=== PATIENT | female | born 1940 | race Caucasian/White ===

== ENCOUNTER 2016-07-16 15:45 | Inpatient (IN) ==
[2016-07-16] MEDS ORDERED: TYLENOL PO ONE (18:34)
[2016-07-16 19:27] LABS: BASO% 0.7 % (0.0-0.8); EOS# 0.04 X1000 (0.0-0.7); EOS% 0.3 % (0.0-10.0); HEMATOCRIT 28.5 % (37.0-47.0); HEMOGLOBIN 9.2 g/dL (12.0-16.0); IMM GRAN# 1.31 X1000 (0.0-0.04); IMM GRAN% 9.4 % (0.0-0.5); LYMPH# 1.05 X1000 (1.2-3.4); LYMPH% 7.6 % (20.5-51.1); MANUAL DIFF NEEDED? NO; MCH 31.1 PG (27-31); MCHC 32.3 g/dL (33-37); MCV 96.3 FL (81-99); MONO# 1.31 X1000 (0.11-0.59); MONO% 9.4 % (1.7-9.3); MPV 9.8 FL (7.4-10.4); NEUT% 72.6 % (42.2-75.2); PLT 316 X1000 (130-400); RBC 2.96 XMIL (4.2-5.4)
[2016-07-16] MEDS ORDERED: LEVAQUIN 750 MG/D5W 750 MG/150 ML IVPB IV ONE (19:31)
[2016-07-16] MEDS ORDERED: LR 1,000 ML IV PRN (19:32)
--- NOTE | 2016-07-16 19:37 | PROVIDER DOCUMENTATION ---
This chart was entered by Rena Saavedra Scribe, acting as scribe for Everette Barajas MD. HPI-General Adult - General Chief Complaint: UTI Symptoms Stated Complaint: UTI SX/FEVER Time Seen by Provider: 07/16/16 18:33 Source: family Allergies/Adverse Reactions: Patient Allergies Allergy/AdvReac Type Severity Reaction Status Date / Time No Known Allergies Allergy Verified 04/22/16 20:22 Home Medications: Home Medication List Medication Instructions Recorded Confirmed Last Taken Type Donepezil [Aricept] 10 mg PO DAILY #0 tablet 05/08/15 04/22/16 04/22/16 Rx Levothyroxine [Synthroid] 75 microgm PO DAILY #0 tablet 05/08/15 04/22/16 Rx Perservision 1 each PO DAILY 05/18/15 04/22/16 04/19/16 History Tramadol [Ultram] 50 mg PO Q4H PRN PRN #0 tablet 05/22/15 04/22/16 04/22/16 Rx Escitalopram Oxalate [Lexapro] 20 mg PO DAILY 05/27/15 04/22/16 04/22/16 History Oxaprozin [Daypro] 600 mg PO BID 04/22/16 04/22/16 04/22/16 History Iron Carbonyl/Ascorbic Acid 1 each PO DAILY #30 tablet 04/25/16 Unknown Rx [Icar-C] Levofloxacin [Levaquin] 500 mg PO DAILY #7 tablet 07/16/16 Unknown Rx - History of Present Illness -Gen Adult Nature of Presenting Problems: Family states that pt has spiked a fever and has not been as active as normal. Daughter states that she has been falling the last couple of days and was seen by Dr. Pritchard yesterday. They were told imaging of legs were normal and it was just worsening of her dementia. Daughter states that pt spiked a fever this morning and thinks that it could be a UTI. Severity: reports: mild Onset/Duration: reports: this morning Timing: reports: still present Associated Symptoms: reports: fever/chills Similar Symptoms Previously?: No Recently seen or treated by another doctor?: Yes Review of Systems - Adult - REVIEW OF SYSTEMS - ADULT ROS:: ROS per family Constitutional: reports: fever. denies: chills Eyes: reports: no symptoms reported Ears, Nose, Mouth & Throat: reports: no symptoms reported Cardiovascular: reports: no symptoms reported Respiratory: denies: cough, wheezing Gastrointestinal: denies: nausea, vomiting Genitourinary: reports: no symptoms reported Musculoskeletal: reports: no symptoms reported Integumentary: denies: skin sores/ulcer, skin thickening Neurological: reports: no symptoms reported Psychiatric: reports: no symptoms reported Endocrine: reports: no symptoms reported Hematologic/Lymphatic: reports: no symptoms reported Allergic/Immunologic: reports: no symptoms reported All Other Systems: Reviewed and Negative Past History - Adult - PAST MEDICAL HISTORY-ADULT Review of Records: reports: Nursing Assessment Review, Medications Reviewed Major Childhood Illnesses: reports: denies history Cardiovascular: reports: HTN, hyperlipidemia Respiratory: reports: denies history Gastrointestinal: reports: denies history Obstetrical/Gynecological: reports: denies history Genitourinary: reports: denies history Musculoskeletal: reports: chronic pain (back) Neurological: reports: Alzheimer's, dementia Psychiatric: reports: depression Endocrine/Immune: reports: thyroid disorder Other Conditions: reports: denies history - PRIOR SURGERIES/PROCEDURES Surgical/Procedure History: reports: cholecystectomy, other (eye) - IMMUNIZATION STATUS Childhood Immunizations: See Nurse Assessment Flu Vaccine: See Nurse Assessment - FAMILY HISTORY Family History: reviewed, not pertinent - SOCIAL HISTORY Smoking: non-smoker Substance Use: none/never Alcohol Use Frequency: never Physical Exam-General - PHYSICAL EXAM-ADULT Initial Vital Signs Reviewed: Yes - CONSTITUTIONAL General Appearance: alert - HEAD, EARS, NOSE, MOUTH & THROAT HENMT: other (poor dentention) - RESPIRATORY Respiratory: chest non-tender, lungs clear, normal breath sounds - CARDIOVASCULAR Cardiovascular: normal peripheral pulses, regular rate, rhythm, no edema - GASTROINTESTINAL (ABDOMEN) Abdominal Exam: tenderness (generalized but greater in suprapubic area) - SKIN Integumentary: other (flushed) - NEUROLOGIC Neurologic: other (reacts to babies crying and acts like people are there who are not) Progress - PLAN OF CARE/RESULTS Progress/Plan/Lab Results: Vital Signs - 8 hr 07/16/16 15:51 Temperature 99.6 F Pulse Rate 93 H Respiratory Rate 18 Blood Pressure 103/69 O2 Sat by Pulse Oximetry 98 Orders Category Date Time Status FLAT/UPRIGHT ABD/1 VIEW CHEST [RAD] Stat Exams 07/16/16 18:33 Taken CBC WITH DIFF [HEME] Stat Lab 07/16/16 18:33 Ordered COMPREHENSIVE METABOLIC PANEL [CHEM] Stat Lab 07/16/16 18:33 Ordered urinalysis [URINALYSIS PL W/POSS RFLX CULT] [URINALYSIS Lab 07/16/16 18:51 Ordered ] Stat Acetaminophen [Tylenol] Med 07/16/16 18:34 Discontinued 500 mg PO NOW ONE Result Diagrams: 07/16/16 19:20 - XRAY 1 Impression: Normal (normal chest, cardiomegally, severe kyphoscoliosis of the spine, large amount of stool but NSBGP, no obstruction: DR. Barajas(ER MD)) XRAY Interpretation: normal chest, severe kyphoscoliosis of the spine, NSBGP: DR. Barajas(ER MD) Departure - Departure Time of Disposition Decision: 19:37 DIAGNOSIS: Pyelonephritis, acute Disposition: HOME 01 Certified Medical Emergency: Emergent Condition: Fair Additional Freetext Instructions: DRINK PLENTY FLUIDS FOLLOW UP WITH DR. PRITCHARD IN COUPLE DAYS Prescriptions: Levofloxacin [Levaquin] 500 mg PO DAILY #7 tablet Referrals and Follow-Ups: Mane Pritchard MD [Primary Care Provider] - - Critical Care Note This patient required my direct & personal management of CC.: No This chart was documented by the indicated scribe, (Rena Saavedra Scribe) and accurately reflects the services I performed and decisions made by me, Everette Barajas MD, as attested by the provider's signature.
[2016-07-16 19:50] LABS: ALBUMIN 3.3 g/dL (3.5-5.0); POTASSIUM 4.6 mmol/L (3.5-5.1); TOTAL BILIRUBIN 0.2 mg/dL (0.20-1.00); TOTAL PROTEIN 6.7 g/dL (6.3-8.3)
[2016-07-16 19:50] LABS: BILIRUBIN URINE 2+ (NEGATIVE); BLOOD URINE 2+ (NEGATIVE); CLARITY SL. CLOUDY (CLEAR); COLOR YELLOW; GLUCOSE URINE NEGATIVE (NEGATIVE); LEUKOCYTES URINE 2+ (NEGATIVE); NITRITE URINE NEGATIVE (NEGATIVE); PROTEIN URINE 1+(30 mg/dL) mg/dL (NEGATIVE); UROBILINOGEN URINE 1+(1 mg/dL)
[2016-07-16 19:51] LABS: URINE RBC TNTC /HPF (<10); URINE WBC TNTC /HPF (<10)
[2016-07-16 19:52] LABS: URINE CAST NONE SEEN /LPF; URINE CRYSTAL NONE SEEN /HPF; URINE CULTURE PL NEEDED? YES; URINE EPITHELIAL CELLS >10 /HPF (<10); URINE SOURCE CLEAN CATCH
[2016-07-16] MEDS ORDERED: NS 1,000 ML IV ONE (20:36)
[2016-07-16] MEDS ORDERED: LEVAQUIN 500 MG/D5W 500 MG/100 ML IVPB IV SCH (20:45)
[2016-07-17] MEDS: TYLENOL PO PRN ×2 (05:44→16:01)
[2016-07-17 07:03] LABS: BASO% 0.4 % (0.0-0.8); EOS# 0.01 X1000 (0.0-0.7); EOS% 0.1 % (0.0-10.0); HEMOGLOBIN 7.7 g/dL (12.0-16.0); IMM GRAN# 1.38 X1000 (0.0-0.04); IMM GRAN% 11.1 % (0.0-0.5); LYMPH# 0.65 X1000 (1.2-3.4); LYMPH% 5.2 % (20.5-51.1); MCH 30.4 PG (27-31); MCHC 32.1 g/dL (33-37); MCV 94.9 FL (81-99); MONO# 0.98 X1000 (0.11-0.59); MONO% 7.9 % (1.7-9.3); NEUT% 75.3 % (42.2-75.2); PLT 289 X1000 (130-400); RBC 2.53 XMIL (4.2-5.4)
[2016-07-17 07:23] LABS: ALBUMIN 2.8 g/dL (3.5-5.0); CALCIUM 8.5 mg/dL (8.8-10.2); POTASSIUM 4.2 mmol/L (3.5-5.1); TOTAL BILIRUBIN 0.2 mg/dL (0.20-1.00); TOTAL PROTEIN 5.7 g/dL (6.3-8.3)
[2016-07-17 07:41] LABS: BANDS 2 % (0-1); LYMPHS 5 % (21-51); MANUAL DIFF NEEDED? YES; MONO 8 % (1-9)
--- NOTE | 2016-07-17 09:05 | Diag Imaging Result Document ---
PROCEDURE NAME: FLAT/UPRIGHT ABD/1 VIEW CHEST - 07/16/2016 FLAT AND UPRIGHT AND CHEST, THREE VIEWS: COMPARISON: The chest is compared to 04/22/2016. FINDINGS: The lungs are well expanded. There are no infiltrates. No free air beneath the diaphragm. Moderate scoliosis. There are surgical clips in the mid right abdomen consistent with a cholecystectomy. No bowel obstruction. No organomegaly. IMPRESSION: 1. No pneumonia. 2. No acute abdominal abnormality.
[2016-07-17] MEDS ORDERED: ULTRAM PO PRN (10:19)
[2016-07-17] MEDS ORDERED: DULCOLAX PR ONE (11:20)
[2016-07-17] MEDS: NS 1,000 ML IV PRN (12:48)
--- NOTE | 2016-07-17 13:51 | HISTORY AND PHYSICAL ---
PRIMARY CARE PHYSICIAN: Dr. Mane Pritchard. CHIEF COMPLAINT: Subjective fever, per the patient's daughter. Brought in for a possible urinary tract infection. HISTORY OF PRESENTING ILLNESS: This is a 75-year-old female who was brought in to [facility] ER by her family, who stated that she had spiked a fever and had not been acting normal. Stated that she has had a couple of falls the last couple of days. Was seen by her primary care physician yesterday, and he felt at that time that it was worsening of her dementia. The daughter states that the patient yesterday morning spiked a fever and felt that it could be a urinary tract infection, so she brought her in for evaluation and treatment. Workup showed a white blood cell count of 13.89, hemoglobin and hematocrit on arrival of 9.2 and 28.5. Sodium was 127 and chloride 91. BUN was 99 with a creatinine of 4.8. Urinalysis showed negative nitrites, but 2+ white blood cells and 2+ bacteria. It was noted that she was admitted to the hospital in April of this year with a GI bleed. She was admitted to the medical floor and we rechecked laboratories this a.m., on 07/17/2016, and it is noted that her hemoglobin and hematocrit have dropped from the 9.2 and 28.5 down to 7.7 and 24 , so she was admitted for further evaluation and treatment. PAST MEDICAL HISTORY: Alzheimer dementia, hypocalcemia, hypertension, hypothyroidism, and hypercholesterolemia. PAST SURGICAL HISTORY: Cholecystectomy. FAMILY HISTORY: Noncontributory. SOCIAL HISTORY: She currently lives with family. Denies any tobacco, alcohol, or illicit drug use. ALLERGIES: She has no known drug allergies. HOME MEDICATIONS: Daypro 600 mg p.o. b.i.d. Citalopram 20 mg p.o. daily. Aricept 10 mg p.o. daily. Synthroid 75 mg p.o. daily. Ultram 50 mg p.o. q.4 hours p.r.n. will be held. REVIEW OF SYSTEMS: She had a subjective fever. Denied any dizziness, blurred vision. Denied any chest pain, coughing, shortness of breath, constipation, diarrhea, or burning or hurting with urination. PHYSICAL EXAMINATION: VITAL SIGNS: On arrival, temperature of 99.6 degrees, pulse 93, respirations 18 , blood pressure 103/69, saturating 98% on room air. GENERAL: This is a 68-year-old female lying in the bed. HEENT: Appears normocephalic and atraumatic. Pupils are equal, round, and reactive to light. Extraocular movements are intact. Oropharynx and nares are clear. NECK: Supple. LUNGS: Clear to auscultation bilaterally, with equal lung expansion and chest wall movement. HEART: Regular rate and rhythm. No murmurs, rubs, or gallops. ABDOMEN: Some tenderness in her suprapubic area, but otherwise normal bowel sounds are present x4 quadrants. EXTREMITIES: No clubbing, cyanosis, or edema. NEUROLOGICAL: Unable to really evaluate at this time due to her dementia. ASSESSMENT: 1. Urinary tract infection. 2. Acute kidney injury. 3. Leukocytosis. 4. Hyponatremia. PLAN: She was admitted to the medical unit at [place]. Russo catheter placed indwelling. Healthy Heart diet. We will consult Nephrology. We will check an occult blood screen, as her hemoglobin and hematocrit dropping could be dilutional, as she has been receiving normal saline at 75 mL an hour, but we will rule out any GI bleed. Levaquin 250 mg IV q.48, and recheck CBC and a BMP in the a.m. Has a living will on file and is a DNR 1. Dictated by STEFANIE Whiteside for Ino Lobato MD cc: STEFANIE Whiteside MD Rodney W. Harney, MD [facility]
[2016-07-17 14:39] LABS: OCCULT BLOOD 1 POSITIVE (NEGATIVE)
[2016-07-17 21:10] LABS: BILIRUBIN URINE NEGATIVE (NEGATIVE); BLOOD URINE NEGATIVE (NEGATIVE); CLARITY VERY CLOUDY (CLEAR); COLOR YELLOW; GLUCOSE URINE NEGATIVE (NEGATIVE); LEUKOCYTES URINE 2+ (NEGATIVE); NITRITE URINE NEGATIVE (NEGATIVE); PROTEIN URINE NEGATIVE (NEGATIVE); UROBILINOGEN URINE NORMAL
[2016-07-17 21:21] LABS: URINE CAST NONE SEEN /LPF; URINE CRYSTAL NONE SEEN /HPF; URINE CULTURE PL NEEDED? YES; URINE EPITHELIAL CELLS >10 /HPF (<10); URINE SOURCE CATH; URINE WBC 20-40 /HPF (<10)
[2016-07-18] MEDS: NS 1,000 ML IV PRN ×2 (02:04→18:35)
[2016-07-18] MEDS: SYNTHROID PO SCH (06:02)
--- NOTE | 2016-07-18 06:43 | CONSULTATION ---
DATE OF CONSULTATION: 07/18/2016 REASON FOR CONSULTATION: Acute kidney injury. HISTORY OF PRESENT ILLNESS: Ms. Crespo is a 75-year-old white female with rather severe Alzheimer dementia. She also has hypertension, hypothyroidism, and hyperlipidemia. She became ill at home with decreased interaction and fever. Because of these symptoms, she was directed to the emergency room. Her initial evaluation found her to have evidence of a urinary tract infection and acute kidney injury with BUN of 99 and creatinine of 4.8. She has had 2 other previous episodes of acute kidney injury at this hospital in April 2016 and April 2015. Each time her peak creatinine was approximately 3. She does not drink much fluid at home, even on a regular day, and her intake had fallen precipitously with her acute illness. Since admission, she has been receiving levofloxacin and IV fluids. PAST MEDICAL HISTORY: As above. HOME MEDICATIONS: Daypro, citalopram, Aricept, Synthroid. ALLERGIES: None. SOCIAL HISTORY: She lives with her daughter. No alcohol or tobacco. FAMILY HISTORY: Otherwise noncontributory. REVIEW OF SYSTEMS: Otherwise noncontributory. PHYSICAL EXAMINATION: Vital Signs: Blood pressure 159/97 heart rate 82, respirations 20, afebrile. General: She is an elderly woman, lying flat, in no acute distress. Skin: Warm and dry. Conjunctivae are pink. Pupils are equal. Oropharynx is clear. Tongue has a small ulcer on the left lateral aspect of the tongue. Poor dentition. Neck: Supple. Trachea is midline. Heart: Regular without gallops or murmurs. Lungs: Have equal breath sounds. No crackles or wheezes. Abdomen: Soft, nontender. Bowel sounds are present. No organomegaly. Extremities: Have no edema, clubbing, or cyanosis. LABORATORY DATA: Sodium 130, potassium 4.2, chloride 96, bicarbonate 12, BUN 94, creatinine 4.6. IMPRESSION AND PLAN: Acute kidney injury. Likely prerenal from intravascular volume depletion. She is receiving intravenous fluids and has good urine output, so I expect to see continued improvement in her BUN and creatinine. I will have her undergo a kidney ultrasound today. No other studies are required. Her antibiotics are dosed appropriately for her kidney disease. Her metabolic acidosis is likely secondary to her renal disease. We will continue to observe without intervention. cc: Milton Genao MD
[2016-07-18 06:54] LABS: BASO% 0.3 % (0.0-0.8); EOS# 0.07 X1000 (0.0-0.7); EOS% 0.6 % (0.0-10.0); HEMATOCRIT 22.7 % (37.0-47.0); HEMOGLOBIN 7.3 g/dL (12.0-16.0); IMM GRAN# 1.61 X1000 (0.0-0.04); IMM GRAN% 14.1 % (0.0-0.5); LYMPH# 0.92 X1000 (1.2-3.4); MANUAL DIFF NEEDED? YES; MCH 30.5 PG (27-31); MCHC 32.2 g/dL (33-37); MONO# 1.03 X1000 (0.11-0.59); PLT 281 X1000 (130-400); RBC 2.39 XMIL (4.2-5.4)
[2016-07-18 07:03] LABS: CALCIUM 8.5 mg/dL (8.8-10.2); POTASSIUM 3.5 mmol/L (3.5-5.1)
[2016-07-18 07:25] LABS: BANDS 4 % (0-1); LYMPHS 10 % (21-51); MONO 10 % (1-9)
[2016-07-18] MEDS: ARICEPT PO SCH (10:26)
[2016-07-18] MEDS: CELEXA PO SCH (10:26)
--- NOTE | 2016-07-18 10:40 | Diag Imaging Result Document ---
PROCEDURE NAME: US RENAL 2 (RETROPER) COMPLETE - 07/18/2016 RENAL ULTRASOUND: COMPARISON: Complete abdominal ultrasound dated 05/03/2015. FINDINGS: There are a couple of small simple-appearing cysts associated with the right kidney. The largest is at the upper pole measuring up to 1.5 cm in the greatest dimension. The kidneys are grossly normal in echotexture, otherwise. There is no discrete solid renal mass or hydronephrosis. The right kidney measures 9.4 cm and the left kidney measures 9.9 cm in the greatest longitudinal axes. The right renal cortex measures up to 6 mm and the left renal cortex measures up to 5 mm in thickness. There is a Russo catheter in the urinary bladder and the bladder is nondistended. IMPRESSION: A couple simple-appearing right renal cysts. Essentially unremarkable renal ultrasound, otherwise.
[2016-07-18] MEDS ORDERED: XANAX PO ONE (12:06)
--- NOTE | 2016-07-18 15:10 | PROGRESS NOTE ---
DATE: 07/18/2016 SUBJECTIVE: This patient is lying on the bed. She looks a little bit agitated. She has advanced dementia. The daughter is at the bedside and we had a really large conversation about this patient. She wants to start talking about hospice, so I talked to the 7th grade social studies teacher and she will call them and they will have a conversation with her as well. Today the hemoglobin was 7.3, and I will transfuse this patient with 1 unit of PRBC. I was trying to send this patient to [place] to see if she can get a colonoscopy because we have a positive Hemoccult. Urine output is better and Nephrology Department is following this patient. This patient is a DNR level 1. OBJECTIVE: Vital Signs: Temperature 98.2 degrees, pulse 76, respiratory rate 18, blood pressure 164/76, O2 saturation 98% on room air. HEENT: Normocephalic. No trauma. PERRLA. Neck: Supple. No JVD. No masses. Central trachea. Lungs: Clear to auscultation. Decreased breath sounds at the bases. Abdomen: Soft, nontender, nondistended. No hepatosplenomegaly. Extremities: No edema. No clubbing. No cyanosis. Neurological: Really unable to evaluate this patient because of her advanced dementia. LABORATORY: WBC 11.4, hemoglobin 7.3, hematocrit 22.7, platelets 281,000. Sodium 132, potassium 3.5, chloride 99, bicarbonate 13, BUN 90, creatinine 4.2, glucose 82, calcium 8.5. Hemoccult positive. ASSESSMENT AND PLAN: 1. Urinary tract infection, continue with antibiotics, we will monitor her CBC and BMP daily. 2. Acute kidney injury. She is making urine. The urine output has been stable. Nephrology Department is following this patient. 3. Hyponatremia. This is getting better. Continue to monitor. 4. Advanced dementia. Aware. I talked to the daughter and she wants to talk to hospice to see if she decides to go home with hospice. 5. Positive Hemoccult, this patient has a positive result that showed blood in the stool, I talked to the daughter about this and she does not want to do any upper or lower endoscopy at this moment. 6. This patient is DNR level 1. cc: Ino Lobato MD
[2016-07-18] MEDS ORDERED: LEVAQUIN 250 MG/D5W 250 MG/50 ML IVPB IV SCH (20:00)
[2016-07-18] MEDS ORDERED: XANAX PO PRN (22:28)
[2016-07-19] MEDS: TYLENOL PO PRN (06:20)
[2016-07-19] MEDS: SYNTHROID PO SCH (06:20)
[2016-07-19 08:15] LABS: BASO% 0.9 % (0.0-0.8); EOS# 0.13 X1000 (0.0-0.7); EOS% 1.2 % (0.0-10.0); HEMATOCRIT 27.5 % (37.0-47.0); IMM GRAN# 1.34 X1000 (0.0-0.04); IMM GRAN% 12.7 % (0.0-0.5); LYMPH# 0.83 X1000 (1.2-3.4); LYMPH% 7.9 % (20.5-51.1); MANUAL DIFF NEEDED? YES; MCH 31.3 PG (27-31); MCHC 32.7 g/dL (33-37); MCV 95.5 FL (81-99); MONO# 1.06 X1000 (0.11-0.59); MONO% 10.1 % (1.7-9.3); MPV 9.6 FL (7.4-10.4); NEUT% 67.2 % (42.2-75.2); PLT 251 X1000 (130-400); RBC 2.88 XMIL (4.2-5.4)
[2016-07-19 08:51] LABS: BANDS 8 % (0-1); EOS 4 % (1-10); LYMPHS 8 % (21-51); MONO 7 % (1-9)
[2016-07-19 08:52] LABS: HYPOCHROM OCCASIONAL; METAMYELOCYTES 3 %
[2016-07-19 09:15] LABS: CALCIUM 8.5 mg/dL (8.8-10.2); POTASSIUM 3.7 mmol/L (3.5-5.1)
[2016-07-19] MEDS: ARICEPT PO SCH (09:42)
[2016-07-19] MEDS: CELEXA PO SCH (09:42)
[2016-07-19] MEDS: NS 1,000 ML IV PRN (09:44)
[2016-07-19 13:32] VITALS: BP 154/80
--- NOTE | 2016-07-19 14:30 | PROGRESS NOTE ---
DATE: 07/19/2016 SUBJECTIVE: She is little changed today. Still not able to relate any symptoms or complaints. OBJECTIVE: Vital Signs: Blood pressure 154/80, heart rate 70, respiration 18, afebrile. Intake 300 mL. Output 450 mL. PHYSICAL EXAMINATION: In no acute distress. Skin is warm and dry with ecchymoses. Conjunctivae are pink. Neck veins are not visible. Trachea is midline. Heart is regular without gallops. Lungs have equal breath sounds without crackles. Abdomen soft, nontender. Bowel sounds present. Extremities have no edema, clubbing, or cyanosis. LABORATORY DATA: Sodium 137, potassium 3.7, chloride 107, bicarbonate 10. BUN 76, creatinine 3.4. IMPRESSION: 1. Acute kidney injury presumably from intravascular volume depletion. Progressive improvement. No changes. 2. Metabolic acidosis. Presumably related to #1. Also receiving normal saline which may perpetuate her acidosis. 3. Extended spectrum beta-lactamase positive urinary tract infection. She is being discharged home with hospice, so no changes are made. cc: Milton Genao MD
--- NOTE | 2016-07-19 20:37 | DISCHARGE SUMMARY ---
ADMISSION DATE: 07/16/2016 DISCHARGE DATE: 07/19/2016 PRIMARY CARE PHYSICIAN: Mane Pritchard MD. ADMISSION DIAGNOSES: 1. Urinary tract infection. 2. Acute kidney injury. 3. Leukocytosis. 4. Hyponatremia. DISCHARGE DIAGNOSES: 1. E. coli urinary tract infection. 2. Acute kidney injury. 3. Hyponatremia improved. 4. Advanced dementia. 5. Positive Hemoccult. 6. DNR level 1. SUMMARY OF FINDINGS: This is a 75-year-old female who presented to the emergency room with her family stating that she had spiked a fever and had not been acting normal. She states that she had a couple falls the last few days. She had seen her primary care physician on the day prior to arrival. He felt that it was worsening of her dementia at that time. The patient's daughter states that she spiked a fever and felt that she could have a UTI so she brought her to the emergency room for evaluation. It showed that she had a white blood cell count of 13.89, sodium was 127, chloride 91, BUN 99, creatinine of 4.8. Urinalysis showed negative nitrites, 2+ white blood cells, and 2+ bacteria. She was noted to have had a GI bleed in April and had an upper EGD that did not reveal any abnormalities. When she arrived this time, she had an hemoglobin and hematocrit of 9.2 and 28.5. The next a.m. her hemoglobin and hematocrit had dropped to 7.7 and 24. Yesterday morning it was 7.3 and 22.7. She received 1 unit of packed red blood cells. It was felt that she may have a GI bleed again as her stool was positive for occult blood but she had not had a colonoscopy. Initially the decision was made to transfer her [facility] to [facility] for GI workup but then the daughter requested a meeting with the attending and it was decided that she did not want to pursue any further testing for any GI bleeding , and she has wanted to take her mom home under hospice care. Social Work was consulted for the hospice care and it has been set up on an outpatient basis. She will go home with hospice care. DISCHARGE MEDICATIONS: 1. She will continue her citalopram 20 mg p.o. daily. 2. Aricept 10 mg p.o. daily. 3. Synthroid 75 mcg p.o. daily. 4. Levaquin 500 mg p.o. daily for 7 days. 5. Daypro 600 mg p.o. b.i.d. 6. PreserVision p.o. daily. 7. Tramadol 50 mg p.o. q.4 hours p.r.n. DISPOSITION: She will be discharged home with hospice at this time. All discharge instructions were reviewed with family and patient. They Verbalized understanding at this time. DISCHARGE TIME: 35 minutes. Dictated by STEFANIE Whiteside for Yuri Marshall MD cc: STEFANIE Whiteside MD Rodney W. Harney, MD [facility]
== END 2016-07-19 16:27 | disposition hospice, home (50) ==
LOC: P.ED 15:45 → P.MEDSURG 21:13 → SUATTDRO 21:13 → P.MEDSURG 21:19
PROVIDERS: ATTEND Internal Medicine

== ENCOUNTER 2016-08-31 22:46 | Inpatient (IN) ==
[2016-08-31] MEDS ORDERED: DILAUDID IV ONE (22:55)
[2016-08-31] MEDS ORDERED: ZOFRAN IV ONE (22:55)
[2016-08-31 23:15] LABS: MANUAL DIFF NEEDED? NO
[2016-08-31 23:18] LABS: BASO% 0.4 % (0.0-0.8); EOS# 0.13 X1000 (0.0-0.7); EOS% 1.5 % (0.0-10.0); HEMATOCRIT 34.1 % (37.0-47.0); HEMOGLOBIN 10.6 g/dL (12.0-16.0); IMM GRAN# 0.06 X1000 (0.0-0.04); IMM GRAN% 0.7 % (0.0-0.5); LYMPH# 2.24 X1000 (1.2-3.4); LYMPH% 26.2 % (20.5-51.1); MCH 30.6 PG (27-31); MCHC 31.1 g/dL (33-37); MCV 98.6 FL (81-99); MONO# 1.09 X1000 (0.11-0.59); MONO% 12.7 % (1.7-9.3); MPV 9.8 FL (7.4-10.4); NEUT% 58.5 % (42.2-75.2); PLT 255 X1000 (130-400); RBC 3.46 XMIL (4.2-5.4)
[2016-08-31 23:34] LABS: BILIRUBIN URINE NEGATIVE (NEGATIVE); BLOOD URINE NEGATIVE (NEGATIVE); CLARITY CLEAR (CLEAR); COLOR YELLOW; GLUCOSE URINE NEGATIVE (NEGATIVE); LEUKOCYTES URINE NEGATIVE (NEGATIVE); NITRITE URINE NEGATIVE (NEGATIVE); PROTEIN URINE NEGATIVE (NEGATIVE); UROBILINOGEN URINE NORMAL
[2016-08-31 23:37] LABS: CALCIUM 9.5 mg/dL (8.8-10.2); POTASSIUM 4.2 mmol/L (3.5-5.1); TOTAL BILIRUBIN 0.4 mg/dL (0.20-1.00); TOTAL PROTEIN 7.1 g/dL (6.3-8.3)
[2016-08-31 23:40] LABS: URINE EPITHELIAL CELLS <10 /HPF (<10); URINE WBC <10 /HPF (<10)
[2016-08-31 23:41] LABS: URINE CULTURE PL NEEDED? YES; URINE SOURCE CATH
--- NOTE | 2016-09-01 00:28 | EKG Report ---
Test Performed on : 09/01/2016 00:24:38 AM Test Reason : hip fx Blood Pressure : / mmHG Vent. Rate : 071 BPM Atrial Rate : 071 BPM P-R Int : 146 ms QRS Dur : 068 ms QT Int : 400 ms P-R-T Axes : 042 -14 008 degrees QTc Int : 434 ms Normal sinus rhythm. Cannot rule out Anterior infarct , age undetermined Abnormal ECG When compared with ECG of 22-APR-2016 16:57, No significant change was found Unconfirmed Result
--- NOTE | 2016-09-01 00:46 | PROVIDER DOCUMENTATION ---
This chart was entered by Kristal Rosa Scribe, acting as scribe for Rick Caldera MD. HPI-Musculoskeletal Pain/Inj - GENERAL Chief Complaint: Fall Stated Complaint: fall Time Seen by Provider: 08/31/16 22:51 Source: patient - HX OF PRESENT ILLNESS-MUSKULOSKELTAL Nature of Presenting Problem: pt is a 75 year old female who came to the ED with a cc of falling and hurting her left hip. pt has dementia and cannot report what happened. Onset/Duration: just prior to arrival Timing: still present Modifying Factors: improves with: nothing Similar Symptoms Previously?: No Recently seen or treated by another doctor?: No - FALL INJURY Location of Pain/Injury: reports: lower extremity (left hip) Pain Radiation: reports: no radiation Reason for Fall: reports: unknown Symptoms prior to fall:: reports: none Loss of Consciousness: unsure Injury Associated Symptoms: reports: unable to bear weight, trouble walking - HIP/PELVIS PAIN/INJURY Hip Pain Location: reports: hip (L) - LOWER EXTREMITY PAIN/INJURY Lower Extremities Pain: hip: left Review of Systems - Adult - REVIEW OF SYSTEMS - ADULT Constitutional: denies: chills, fever Eyes: reports: no symptoms reported Ears, Nose, Mouth & Throat: reports: no symptoms reported Cardiovascular: denies: chest pain, syncope Respiratory: reports: no symptoms reported Gastrointestinal: denies: diarrhea, nausea, vomiting Genitourinary: reports: no symptoms reported Musculoskeletal: reports: bone pain (left hip). denies: back pain, joint swelling, neck pain Integumentary: reports: no symptoms reported Neurological: reports: no symptoms reported Psychiatric: reports: no symptoms reported Endocrine: reports: no symptoms reported Hematologic/Lymphatic: reports: no symptoms reported Allergic/Immunologic: reports: no symptoms reported All Other Systems: Reviewed and Negative Past History - Adult - PAST MEDICAL HISTORY-ADULT Review of Records: reports: Nursing Assessment Review Major Childhood Illnesses: reports: denies history Cardiovascular: reports: HTN, hyperlipidemia Respiratory: reports: denies history Gastrointestinal: reports: denies history Obstetrical/Gynecological: reports: denies history Genitourinary: reports: denies history Musculoskeletal: reports: chronic pain (back) Neurological: reports: Alzheimer's, dementia Psychiatric: reports: depression Endocrine/Immune: reports: thyroid disorder Other Conditions: reports: denies history - PRIOR SURGERIES/PROCEDURES Surgical/Procedure History: reports: cholecystectomy, other (eye) - IMMUNIZATION STATUS Childhood Immunizations: See Nurse Assessment Flu Vaccine: See Nurse Assessment - FAMILY HISTORY Family History: reviewed, not pertinent Physical Exam-Injury Related - Physical Exam-Injury Related Initial Vital Signs Reviewed: Yes General Appearance: alert, mild distress Eyes: PERRL/EOMI, pink conjunctivae Head, Ears, Nose, Mouth & Throat: normocephalic/atraumatic, moist mucous membranes Neck: non-tender, full range of motion Respiratory: chest non-tender, lungs clear Cardiovascular: normal peripheral pulses, regular rate, rhythm Abdominal Exam: normal bowel sounds, non tender Back Exam: normal inspection, no CVA tenderness Extremity: deformity (left leg is shorter and externally rotated), tenderness ( left hip). negative: normal range of motion, normal gait Integumentary: normal color, warm/dry Neurologic: grossly normal Psych/Mental Status: normal mood/affect, normal thought content, normal thought process, oriented x 3 Progress - PLAN OF CARE/RESULTS Progress/Plan/Lab Results: Vital Signs - 8 hr 08/31/16 22:48 09/01/16 00:15 Pulse Rate 99 H 69 Respiratory Rate 20 22 Blood Pressure 121/83 141/96 O2 Sat by Pulse Oximetry 94 L 100 Laboratory Results - last 24 hr 08/31/16 08/31/16 08/31/16 23:04 23:04 23:05 WBC 8.56 RBC 3.46 L Hgb 10.6 L Hct 34.1 L MCV 98.6 MCH 30.6 MCHC 31.1 L RDW Std Deviation 14.7 H Plt Count 255 MPV 9.8 Immature Gran % (Auto) 0.7 H Neut % (Auto) 58.5 Lymph % (Auto) 26.2 Shoshone % (Auto) 12.7 H Eos % (Auto) 1.5 Baso % (Auto) 0.4 Immature Gran # (Auto) 0.06 H Neut # (Auto) 5.01 Lymph # (Auto) 2.24 Shoshone # (Auto) 1.09 H Eos # (Auto) 0.13 Baso # (Auto) 0.03 Sodium 135 L Potassium 4.2 Chloride 98 Carbon Dioxide 21 L Anion Gap 16 BUN 24 H Creatinine 1.5 H Estimated GFR/1.73 m2 34 BUN/Creatinine Ratio 16 Glucose 150 H Calculated Osmolality 277 Calcium 9.5 Total Bilirubin 0.40 AST 17 ALT 10 Alkaline Phosphatase 106 H Total Protein 7.1 Albumin 4.0 Globulin 3.0 Albumin/Globulin Ratio 1.0 Urine Source CATH Urine Color YELLOW Urine Clarity CLEAR Urine pH 5.0 Ur Specific [place] 1.010 Urine Protein NEGATIVE Urine Ketones NEGATIVE Urine Blood NEGATIVE Urine Nitrite NEGATIVE Urine Bilirubin NEGATIVE Urine Urobilinogen NORMAL Urine Microscopic RBC Not Reportable Urine WBC NEGATIVE Urine Microscopic WBC <10 Ur Epithelial Cells <10 Urine Bacteria 3+ Urine Glucose NEGATIVE Orders Category Date Time Status Russo Cath Insertion ORDERED Care 08/31/16 22:55 Active CHEST-PORTABLE [RAD] Stat Exams 08/31/16 22:56 Taken HEAD W/O CONTRAST [CT] Stat Exams 08/31/16 22:57 Taken XRAY PELVIS W/HIP 2-3VW LT [RAD] Stat Exams 08/31/16 22:57 Taken CBC WITH ELECTRONIC DIFF [HEME] Stat Lab 08/31/16 23:04 Completed CMP [COMPREHENSIVE METABOLIC PANEL] [CHEM] Stat Lab 08/31/16 23:04 Completed UA NIMS W/REFLEX CULT PL [URINALYSIS] Stat Lab 08/31/16 23:05 Completed URINE CULTURE [RM] Routine Lab 08/31/16 23:41 Ordered Hydromorphone [Dilaudid] Med 08/31/16 22:55 Discontinued 1 mg IV NOW ONE Ondansetron [Zofran] Med 08/31/16 22:55 Discontinued 4 mg IV NOW ONE EKG [EKG] Stat Ther 08/31/16 22:58 Draft Result Diagrams: 08/31/16 23:04 08/31/16 23:04 - XRAY 1 XRAY: Left XRAY Study: Hip (femeral neck fx) 2 XRAY Study: Chest (NAD) - CT/MRI 1 CT Study: Head (mild nonspecific periventricular deep white matter disease) Departure - Departure Date of Disposition Decision: 09/01/16 Time of Disposition Decision: 00:45 DIAGNOSIS: Closed left hip fracture Qualifiers: Encounter type: initial encounter Qualified Code(s): S72.002A - Fracture of unspecified part of neck of left femur, initial encounter for closed fracture Disposition: ADMITTED INPATIENT 09 Certified Medical Emergency: Emergent Condition: Fair - Critical Care Note This patient required my direct & personal management of CC.: No This chart was documented by the indicated scribe, (Kristal Rosa Scribe) and accurately reflects the services I performed and decisions made by me, Rick Dorantes MD, as attested by the provider's signature.
[2016-09-01] MEDS ORDERED: ZOFRAN IV PRN (02:00)
[2016-09-01] MEDS ORDERED: TYLENOL PO PRN (02:00)
[2016-09-01] MEDS ORDERED: MORPHINE IV PRN (02:03)
[2016-09-01] MEDS: NS 1,000 ML IV SCH ×2 (02:29→18:26)
--- NOTE | 2016-09-01 03:43 | HISTORY AND PHYSICAL ---
PRIMARY CARE PROVIDER: Mane Pritchard MD. CHIEF COMPLAINT: Fall. HISTORY OF PRESENT ILLNESS: This is a 75-year-old female who was brought in by her daughter. She lives at home with family. She was recently admitted on 07/16/2016 for altered mental status. However, the patient does have Alzheimer's dementia, hypertension, hypothyroidism and hyperlipidemia. She had complained of left hip pain after falling today. The left lower extremity was noted to be mildly externally rotated. A chest x-ray was obtained which was NAD, a CT of the head which showed nonspecific mild periventricular white matter disease and a left hip x- ray showed a femoral neck fracture. Laboratory data was obtained but was not grossly different from patient's baseline labs. She will be admitted to the medical floor with an ortho consult. PAST MEDICAL HISTORY: 1. Alzheimer's dementia. 2. Hypocalcemia. 3. Hypertension. 4. Hypothyroidism. 5. Hyperlipidemia. PREVIOUS SURGICAL HISTORY: Cholecystectomy. FAMILY HISTORY: Mother had unknown type of cancer. Father from a myocardial infarction in his 60s. SOCIAL HISTORY: Lives with family. Denies tobacco, alcohol or illicit drug use or abuse. ALLERGIES: No known drug allergies. HOME MEDICATIONS: The list of home medications could not be reconciled at this time. Nursing will work on reconciling a home medication list. REVIEW OF SYSTEMS: The patient received Dilaudid in the emergency room. Fourteen point review of systems could not be conducted with the patient as she was sleeping soundly and did arouse but did not answer questions at this time. Plus, she has known Alzheimer's dementia. The daughter at the bedside provided information that her only complaint was left hip pain. Other pertinent positives listed above in the HPI. Other systems were reviewed with the daughter and negative. PHYSICAL EXAMINATION: VITAL SIGNS: Pulse 70, respirations 24, blood pressure 156/95, oxygen saturation 100% on 2 L nasal cannula. GENERAL: Elderly, 75-year-old female lying in medical floor bed, resting comfortably after receiving Dilaudid in the ER, no acute distress. HEENT: Head is atraumatic, normocephalic. Pupils are noted to be miotic, however, they were responsive. They were equal and round. Extraocular eye movement could not be tested as patient was not following commands. Oral mucosa was dry. NECK: Supple. No JVD. Trachea is midline. CARDIAC: S1-S2 appreciated. No murmurs, gallops, rubs. Regular rhythm. LUNGS: Clear to auscultation bilaterally. No rhonchi, wheezes or rales. Symmetrical rise and fall with respirations. ABDOMEN: Soft, nondistended, nontender. Bowel sounds present in all 4 quadrants hypoactive. No pulsatile mass. No organomegaly. EXTREMITIES: No clubbing, cyanosis, or edema. Left lower extremity was noticed to be shorter than the right lower extremity as well as externally rotated. NEUROLOGICAL: Unable to be evaluated related to sedation from Dilaudid as well as underlying Alzheimer's dementia. Daughter states that she is normally oriented to her name. DIAGNOSTIC DATA: Chest x-ray: NAD. CT showed mild nonspecific periventricular deep white matter disease. Left hip x-ray showed a femoral neck fracture. LABORATORY DATA: WBC 8.56, hemoglobin 10.6, hematocrit 34.1, platelet count 255 ,000. Sodium 135, potassium 4.2, chloride 98, carbon dioxide 21, BUN 24, creatinine 1.5, glucose 150. Urine unremarkable. ASSESSMENT AND PLAN: 1. Left hip fracture. We will consult Dr. Garnica, who is salon professional for ortho. We will defer to him the need for Mcarthur's traction. We will give morphine as needed p.r.n. for pain. 2. Chronic kidney disease stage 3, aware. We will provide mild fluid hydration 70 mL an hour as the patient will be held NPO. 3. Hypertension. We will restart patient's home medications when available. 4. Anemia. The patient was noted as having a low hemoglobin and hematocrit and was ruled out for GI bleed on last presentation in July. Her hemoglobin and hematocrit have risen back to more normal levels. We will monitor. 5. Hypothyroidism. Check a TSH. Restart Synthroid when available. Further recommendations per patient clinical course history. Dictated by STEFANIE De La Cruz for Sandra Saini MD Seen and examined pt with [employer]TER. Discussed plan of care. cc: MD Ben Best CRNP [place] P. Akinsoto, MD [facility]
--- NOTE | 2016-09-01 09:40 | Diag Imaging Result Doc PS360 ---
CHEST-PORTABLE - 08/31/2016 INDICATION: hip fx TECHNIQUE: COMPARISON: 07/16/2016 FINDINGS: Lung volumes are lower with increasing linear atelectasis in the right lung base. Heart size remains top normal. No significant or focal infiltrates. No pneumothorax or pleural effusion. IMPRESSION: Severely low lung volumes with linear atelectasis. Electronically signed by Geovanny Gordon 09/01/2016 9:38 AM
--- NOTE | 2016-09-01 09:41 | Diag Imaging Result Doc PS360 ---
XRAY PELVIS W/HIP 2-3VW LT - 08/31/2016 INDICATION: hip fx TECHNIQUE: Four views COMPARISON: 05/27/2015 FINDINGS: There is a displaced, impacted subcapital left femoral neck fracture. No dislocation. IMPRESSION: Subcapital left hip fracture. Electronically signed by Geovanny Gordon 09/01/2016 9:39 AM
--- NOTE | 2016-09-01 09:49 | Diag Imaging Result Doc PS360 ---
HEAD W/O CONTRAST - 08/31/2016 INDICATION: fall TECHNIQUE: A CT dose reduction protocol was used. COMPARISON: None FINDINGS: There is mild diffuse atrophy. There is mild periventricular white matter hypodensity compatible with chronic microvascular disease. No intracranial mass or hemorrhage. No skull fractures. There is chronic sinusitis of the left maxillary sinus. IMPRESSION: Chronic changes as described above. Electronically signed by Geovanny Gordon 09/01/2016 9:46 AM
[2016-09-01] MEDS ORDERED: FENTANYL ONE (10:24)
[2016-09-01] MEDS ORDERED: DIPRIVAN 1% ONE (10:24)
[2016-09-01] MEDS ORDERED: XYLOCAINE-MPF 2% ONE (10:24)
[2016-09-01] MEDS ORDERED: KEFZOL 1 GM/D5W 1 GM/50 ML IVPB IV ONE (11:30)
[2016-09-01] MEDS ORDERED: MARCAINE 0.25% PF/EPI 1:200,000 ONE ×2 (11:31→11:32)
[2016-09-01] MEDS ORDERED: EXPAREL 1.3% ONE (11:31)
[2016-09-01] MEDS ORDERED: SODIUM CHLORIDE 0.9% 0 ML ONE (11:31)
[2016-09-01] MEDS ORDERED: KEFZOL 1 GM/D5W 1 GM/50 ML IVPB ONE (11:40)
[2016-09-01] MEDS ORDERED: MARCAINE 0.25% PF ONE (12:00)
[2016-09-01] MEDS ORDERED: CYKLOKAPRON 1,000 MG in NS 100 ML IV ONE ×2 (12:00→18:30)
[2016-09-01] MEDS ORDERED: NEOSPORIN G.U. IRRIGANT ONE (12:01)
[2016-09-01] MEDS ORDERED: SODIUM CHLORIDE 0.9% ONE (12:06)
[2016-09-01] MEDS ORDERED: CYKLOKAPRON 1,000 MG/NS 0 MG/0 ML IVPB ONE (12:20)
[2016-09-01] MEDS ORDERED: CYKLOKAPRON 1,000 MG/NS 1,000 MG/100 ML IVPB ONE (12:25)
[2016-09-01] MEDS ORDERED: EPHEDRINE ONE (13:23)
[2016-09-01] MEDS ORDERED: OFIRMEV 1000 MG/ISOTONIC SOLN 1,000 MG/100 ML BOTTLE ONE (13:23)
[2016-09-01] MEDS ORDERED: ZOFRAN ONE (13:31)
[2016-09-01] MEDS ORDERED: DECADRON ONE (13:31)
[2016-09-01] MEDS ORDERED: NS 1,000 ML ONE (14:36)
[2016-09-01] MEDS ORDERED: OXY IR PO PRN (17:41)
[2016-09-01] MEDS ORDERED: AMBIEN PO PRN (17:44)
[2016-09-01] MEDS ORDERED: MILK OF MAGNESIA PO PRN (17:44)
[2016-09-01] MEDS: ULTRAM PO SCH (18:27)
[2016-09-01] MEDS: TYLENOL PO SCH (18:40)
--- NOTE | 2016-09-01 19:07 | OPERATIVE NOTE ---
PROCEDURE DATE: 09/01/2016 PREOPERATIVE DIAGNOSIS: Left displaced femoral neck fracture. POSTOPERATIVE DIAGNOSIS: Left displaced femoral neck fracture. PROCEDURE PERFORMED: Left bipolar hemiarthroplasty using a DePuy size 14 stem with a +1.5, 28 mm head and a 41 mm bipolar head. SURGEON: Adalberto Garnica MD ANESTHESIA: General. COMPLICATIONS: None. BLOOD LOSS: Minimal. DESCRIPTION OF PROCEDURE: The patient was brought to the operative suite and placed in a supine position. After successful administration of general anesthesia, the patient was placed on the OSI table in the usual position for the left hip. The left hip was then prepped and draped in the usual sterile fashion for an anterior approach. A longitudinal incision was then made beginning 2 cm distal and 2 cm lateral to the anterior superior iliac spine, extending distally and slightly laterally, 8 cm. It was dissected sharply through the skin subcutaneous tissue down to the tensor fascia. The tensor fascia was incised and dissected bluntly down to the deep tensor fascia. The deep tensor fascia was incised and the circumflex vessels were electrocauterized, exposing the anterior capsule. A T-capsulotomy was performed, exposing the femoral neck. A femoral neck cut was made with an oscillating saw. The femoral head was removed with a power corkscrew. The head was measured to 41 mm. A 41 trial was found to be an excellent fit. Attention was then directed to the femur. It was externally rotated, extended, adducted, and elevated out of the wound with the hook on the OSI bed. The lateral neck was rongeured. The canal was serially broached to a size 14. A size 14, +1.5, 41 mm bipolar was trialed and found to be excellent leg length, offset, and stability of the hip. The trial was removed. The definitive stem was locked onto the femur. Once it was well seated, the +1.5, 28 mm head and bipolar 41 mm head were locked onto the Bui taper and then the hip was copiously irrigated and dried. The hip was reduced. It was again found to be in excellent position. The hip was copiously infiltrated with Exparel, including the posterior capsule, anterior capsule, anterior musculature, and subcutaneous tissue. The anterior capsule was repaired with an 0 V-Loc suture, running. A drain was placed deep to the tensor fascia and then the tensor fascia closed with running 0 V-Loc suture. The skin edge was approximated with 2-0 Vicryl. The skin was closed with Monocryl and then Prineo dressing. A sterile dressing was placed over the drain. The patient tolerated the procedure well without complication. At the end of the procedure, all counts were correct x2. The patient was transferred to the recovery room in stable condition. cc: Adalberto Garnica MD
[2016-09-01] MEDS: MORPHINE IV PRN ×2 (20:03→23:31)
[2016-09-01] MEDS: KEFZOL 2 GM/D5W 2 GM/50 ML IVPB IV SCH (20:03)
[2016-09-01] MEDS: ZOFRAN IV PRN (20:03)
[2016-09-01] MEDS: LYRICA PO SCH (20:05)
[2016-09-01] MEDS: CELEBREX PO SCH (20:05)
[2016-09-01] MEDS: COLACE PO SCH (20:05)
[2016-09-02] MEDS: ULTRAM PO SCH ×4 (01:06→18:32)
[2016-09-02] MEDS: TYLENOL PO SCH ×4 (01:07→19:50)
[2016-09-02] MEDS: MORPHINE IV PRN ×2 (02:29→05:11)
[2016-09-02] MEDS: NS 1,000 ML IV SCH ×2 (02:29→07:55)
[2016-09-02] MEDS: ZOFRAN IV PRN (02:29)
[2016-09-02] MEDS: KEFZOL 2 GM/D5W 2 GM/50 ML IVPB IV SCH (03:57)
[2016-09-02] MEDS: XARELTO PO SCH (05:11)
--- NOTE | 2016-09-02 05:49 | CONSULTATION ---
DATE OF CONSULTATION: 09/01/2016 CHIEF COMPLAINT: Left hip injury. HISTORY OF PRESENT ILLNESS: Mary Grace Crespo is a 75-year-old female with a fall. Complains of left hip pain and inability to ambulate. She was admitted for hip fracture and I was asked to see her in orthopedic consultation. PAST MEDICAL HISTORY: See admission history and physical. PAST SURGICAL HISTORY: See admission history and physical. MEDICINES: See admission history and physical. ALLERGIES: See admission history and physical. PHYSICAL EXAMINATION: General: Well-developed, well-nourished female. She is alert, oriented, and cooperative with exam. She has pain with any range of motion of her hip. Her hip is shortened and externally rotated. Her leg is neurovascularly intact. X-rays show a displaced left femoral neck fracture. IMPRESSION: Displaced left femoral neck fracture. PLAN: Today I discussed treatment with her. I think we should proceed with a left anterior bipolar hemiarthroplasty. I have discussed with her the risks, benefits, and alternatives of this, including but not limited to bleeding, nerve damage, infection, risk from anesthesia, hardware failure, malunion, nonunion, dislocation, leg length inequality, deep venous thrombosis resulting in pulmonary embolus, up to and including loss of limb, life, and other imponderables. All questions were answered. No guarantees were given. She voiced understanding and requested to proceed as planned. We will schedule surgery as soon as possible. cc: Adalberto Garnica MD [facility]
[2016-09-02 05:57] LABS: MANUAL DIFF NEEDED? NO
[2016-09-02 06:03] LABS: BASO% 0.1 % (0.0-0.8); HEMATOCRIT 24.8 % (37.0-47.0); HEMOGLOBIN 7.3 g/dL (12.0-16.0); IMM GRAN# 0.02 X1000 (0.0-0.04); IMM GRAN% 0.3 % (0.0-0.5); LYMPH# 1.39 X1000 (1.2-3.4); LYMPH% 17.7 % (20.5-51.1); MCHC 29.4 g/dL (33-37); MCV 102.1 FL (81-99); MONO# 1.17 X1000 (0.11-0.59); MONO% 14.9 % (1.7-9.3); MPV 10.1 FL (7.4-10.4); PLT 217 X1000 (130-400); RBC 2.43 XMIL (4.2-5.4)
[2016-09-02 06:28] LABS: CALCIUM 8.5 mg/dL (8.8-10.2); POTASSIUM 5.3 mmol/L (3.5-5.1)
[2016-09-02] MEDS ORDERED: DECADRON IV ONE (09:00)
[2016-09-02] MEDS: PEPCID PO SCH (10:01)
[2016-09-02] MEDS: LYRICA PO SCH (10:01)
[2016-09-02] MEDS: COLACE PO SCH (10:01)
[2016-09-02] MEDS: CELEBREX PO SCH (10:01)
[2016-09-02] MEDS ORDERED: SYNTHROID PO ONE (10:39)
[2016-09-02] MEDS ORDERED: SODIUM CHLORIDE 0.9% INJ SCH (14:45)
--- NOTE | 2016-09-02 16:29 | PROGRESS NOTE ---
DATE: 09/02/2016 SUBJECTIVE: The patient is resting comfortably in bed. The family is present at the bedside and state that the patient has severe dementia. OBJECTIVE: Vital Signs: Temperature 98.9 degrees, blood pressure 115/68, heart rate 91, respirations 22, O2 saturations 100% on 2 L nasal cannula. General: This is an elderly female, lying in bed, in no acute distress. Head: Normocephalic, atraumatic. Heart: S1, S2 normal. Regular rate and rhythm. Lungs: Clear to auscultation bilaterally. No crackles. No rales. Abdomen: Positive bowel sounds. Soft, nontender, nondistended. Extremities: No edema. No cyanosis. No calf tenderness. Neurologic: The patient is awake and does move all 4 extremities. LABORATORY DATA: White blood cell count 7.8, hemoglobin 7.3, hematocrit 24, platelets 217,000. Sodium 142, potassium 5.3, chloride 107, CO2 of 23, BUN 25, creatinine 1.7, glucose 94, calcium 8.5. ASSESSMENT AND PLAN: 1. Status post left bipolar hemiarthroplasty. Management as per the orthopedic surgeon. 2. Acute kidney injury on chronic kidney disease. Will check urine electrolytes and avoid nephrotoxic agents. 3. Hypothyroidism. The patient's TSH is quite low. We will hold the Synthroid at this time. 4. Dementia. Aware. 5. Hyperkalemia. We will continue to monitor the patient's potassium closely. 6. Deep vein thrombosis prophylaxis. The patient is on Xarelto. 7. Disposition. The patient will be discharged to rehab once medically stable. We will consult delinquency prevention social worker to assist with this. cc: Jaqueline Langley MD
--- NOTE | 2016-09-02 17:51 | PROGRESS NOTE ---
DATE: 09/02/2016 SUBJECTIVE: Mary Grace Crespo is a 75-year-old female who is postoperative day 1 from a left bipolar hemiarthroplasty. She has no complaints. She is resting comfortably. OBJECTIVE: She is a well-developed, well-nourished female. She is alert, oriented, and cooperative on exam. Her wound is clean, dry, intact without sign of infection. She has had minimal output from her drain. Her leg is neurovascularly intact. DIAGNOSTIC DATA: Her hematocrit is 24.8, but she is receiving a transfusion now. ASSESSMENT: Stable left bipolar hemiarthroplasty. PLAN: We have removed her drain today and instructed her to continue working on physical therapy. She can go to rehab when cleared medically. cc: Adalberto Garnica MD
[2016-09-02 19:13] LABS: UR CREAT RANDOM 94.6 mg/dL (11-20); UR PROT RANDOM 21.7 mg/dL
[2016-09-02] MEDS ORDERED: NS 2,000 ML ONE (21:33)
[2016-09-03] MEDS: TYLENOL PO SCH ×4 (04:45→22:00)
[2016-09-03] MEDS: XARELTO PO SCH ×2 (04:46→09:01)
[2016-09-03 06:20] LABS: HEMATOCRIT 31.3 % (37.0-47.0); HEMOGLOBIN 10.1 g/dL (12.0-16.0)
[2016-09-03 06:36] LABS: CALCIUM 8.9 mg/dL (8.8-10.2); POTASSIUM 4.9 mmol/L (3.5-5.1)
[2016-09-03] MEDS ORDERED: PROTONIX IV SCH (07:00)
[2016-09-03] MEDS ORDERED: SYNTHROID PO SCH (07:00)
[2016-09-03] MEDS: ULTRAM PO SCH ×3 (07:34→18:06)
[2016-09-03] MEDS: COLACE PO SCH ×2 (09:00→22:00)
[2016-09-03] MEDS: PEPCID PO SCH (09:01)
--- NOTE | 2016-09-03 09:02 | PROGRESS NOTE ---
DATE: 09/03/2016 SUBJECTIVE: Mary Grace Crespo is a 75-year-old female, who is postoperative day 2 from a left bipolar hemiarthroplasty. She has no complaints. OBJECTIVE: She is a well-developed, well-nourished female. She is cooperative with exam. Her wound is clean, dry, intact without sign of infection or drainage. Her leg is neurovascularly intact. ASSESSMENT: Stable left bipolar hemiarthroplasty. PLAN: We will continue to have her working with physical therapy. Her hematocrit yesterday was 22 but she received to treat 2 units of blood over the evening. She can be transferred to rehab facility when cleared medically. She will be weightbearing as tolerated on her left lower extremity. She will need to see me back in the office in 2 weeks. cc: Adalberto Garnica MD
[2016-09-03] MEDS: CELEBREX PO SCH ×3 (09:06→22:00)
[2016-09-03] MEDS: LYRICA PO SCH ×2 (09:07→22:00)
--- NOTE | 2016-09-03 16:15 | PROGRESS NOTE ---
DATE: 09/03/2016 SUBJECTIVE: The patient is resting comfortably in bed. No acute events noted overnight. The patient remains pleasantly confused. OBJECTIVE: Vital Signs: Temperature 97 degrees, blood pressure 132/90, heart rate 80, respirations 18, O2 saturations 93% on room air. General: This is an elderly female lying in bed, in no acute distress. Head: Normocephalic, atraumatic. Heart: S1, S2. Normal. Regular rate and rhythm. Lungs: Clear to auscultation bilaterally. Abdomen: Positive bowel sounds. Soft, nontender, nondistended. Extremities: No edema. No cyanosis. No calf tenderness. Neurologic: The patient is alert but not oriented to self, person or place. She is able to move all 4 extremities. LABORATORY: Hemoglobin 10, hematocrit 31, sodium 138, potassium 4.9, chloride 106, CO2 19, BUN 30, creatinine 1.6. ASSESSMENT AND PLAN: 1. Status post left bipolar hemiarthroplasty. Management as per the orthopedic surgeon. 2. Acute kidney injury on chronic kidney disease. Improved. Will continue to monitor this closely. 3. Hypothyroidism. The patient's Synthroid is on hold. The patient will need repeat thyroid function study test in about 2 weeks. 4. Dementia. Aware. 5. Hypertension. We will adjust the patient's antihypertensives therapy. 6. Hyperkalemia. Improved. 7. Deep vein thrombosis prophylaxis. Continue on Xarelto. 8. Disposition. Will plan to discharge the patient to rehab tomorrow if a bed is available. cc: Jaqueline Langley MD MTDD
[2016-09-04] MEDS: COLACE PO SCH ×2 (00:28→08:57)
[2016-09-04] MEDS: LYRICA PO SCH ×2 (00:29→08:58)
[2016-09-04] MEDS: ULTRAM PO SCH (00:31)
[2016-09-04 06:42] LABS: HEMATOCRIT 33.8 % (37.0-47.0); HEMOGLOBIN 10.8 g/dL (12.0-16.0)
[2016-09-04] MEDS: XARELTO PO SCH (06:51)
[2016-09-04] MEDS ORDERED: PROTONIX PO SCH (07:00)
[2016-09-04] MEDS: CELEBREX PO SCH (08:57)
[2016-09-04] MEDS: PEPCID PO SCH (08:58)
[2016-09-04] MEDS ORDERED: DULCOLAX PR PRN (10:16)
--- NOTE | 2016-09-04 10:20 | PROGRESS NOTE ---
DATE: 09/04/2016 SUBJECTIVE: Mary Grace Crespo is a 75-year-old female, who is postoperative day 3 from a left bipolar hemiarthroplasty. She has no complaints. OBJECTIVE: She is well-nourished female. She is alert, oriented, and cooperative on exam. Her wound is clean, dry, and intact. Her hematocrit is 33.8%. ASSESSMENT: Stable left bipolar hemiarthroplasty. PLAN: She can be transferred to rehab at any time from an orthopedic standpoint. She will return to see me on 09/12/2016. cc: Adalberto Garnica MD
--- NOTE | 2016-09-04 12:05 | DISCHARGE SUMMARY ---
ADMISSION DATE: 09/01/2016 DISCHARGE DATE: 09/04/2016 PRIMARY CARE PHYSICIAN: Dr. Mane Pritchard. FINAL DISCHARGE DIAGNOSES: 1. Status post left bipolar hemiarthroplasty secondary to a left displaced femoral neck fracture. 2. Acute kidney injury on chronic kidney disease. 3. Hypothyroidism. 4. Dementia. 5. Hypertension. 6. Mild hyperkalemia. 7. Constipation. IMAGING PERFORMED DURING THIS HOSPITAL STAY: 1. Portable chest x-ray done on 08/31/2016 which revealed severe low lung volumes with linear atelectasis. 2. Head CT performed on 08/31/2016 which revealed chronic microvascular disease. 3. An x-ray of the left hip and pelvis which revealed a subcapital left hip fracture. CONSULTATIONS REQUESTED DURING THIS HOSPITAL STAY: Orthopedic consultation with Dr. Garnica. PROCEDURES PERFORMED DURING THIS HOSPITAL STAY: Left bipolar hemiarthroplasty. HOSPITAL COURSE: Ms. Crespo is a 75-year-old female with a history of advanced dementia, hypertension and osteoarthritis who was brought to the ER after suffering a fall. The patient was brought to the ER and a hip x-ray was done that revealed a left hip fracture involving the femoral neck. Of note, the patient was noted to be in acute renal failure. The patient was admitted to the hospitalist service and Dr. Garnica was consulted. The patient was taken to the OR on 09/01/2016 at which time a left bipolar hemiarthroplasty was performed. The patient did well postoperatively. The patient's BUN and creatinine improved with IV fluid administration. Of note, the patient was noted to have a TSH of 0.25 and a free T4 of G. The patient is normally on Synthroid at 75 mcg oral daily. We held the patient's Synthroid during the hospital stay. The patient was also noted to be mildly hyperkalemic and this improved as well over the course of the hospitalization. The patient did require 2 units of packed red blood cells on postop day 1 because her hemoglobin and hematocrit dropped to 7.3 and 24. Following the transfusion the patient was noted to have a hemoglobin and hematocrit of 10 and 31 respectively and these numbers remained stable throughout the hospital stay. The patient was seen by physical therapy and the patient's family opted to have the patient sent to inpatient rehab. The patient is currently stable for discharge to rehab today. DISCHARGE MEDICATIONS: 1. Colace 100 mg p.o. twice a day. 2. Xarelto 10 mg p.o. daily. 3. Celexa 20 mg p.o. daily. 4. Lisinopril/hydrochlorothiazide 1 tab oral daily. 5. Aricept 10 mg p.o. daily. 6. Iron plus tablet 1 tab oral daily. 7. Ativan 1 mg p.o. every 4 hours p.r.n. for anxiety. 8. Bisacodyl 10 mg per rectum p.r.n. daily for constipation. 9. Synthroid 25 mcg oral daily. DISCHARGE DIET: Low sodium diet. ACTIVITY: As tolerated. FOLLOWUP INSTRUCTIONS: The patient will need to follow up with Dr. Garnica on 10/02/2016 for a postop check. cc: MD Mane Tomlinson MD
[2016-09-04 15:17] VITALS: BP 113/63
[2016-09-05] MEDS ORDERED: ARICEPT PO SCH (09:00)
== END 2016-09-04 15:19 ==
LOC: P.ED 22:46 → SUPCPDRO 09-01 00:58 → 4N 09-01 00:58 → SUATTDRO 09-01 00:58 → 4N 09-01 01:18
PROVIDERS: ATTEND Internal Medicine